=== PATIENT | male | born 1980 | race Caucasian/White ===

== ENCOUNTER → 2016-10-15 | Outpatient (CLI) | payer OTHER ==
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
== END | disposition home or self-care (01) ==
LOC: RADXRMAIN 11:32
PROVIDERS: ATTEND Family Medicine
DX: J44.9 Chronic obstructive pulmonary disease, unspecified (principal)
CPT/HCPCS: 71020

== ENCOUNTER 2016-12-07 10:56 | Emergency (ER) | payer OTHER ==
[2016-12-07 11:02] VITALS: BP 137/77; PULSE 63; RESP 20; TEMP 98
[2016-12-07] MEDS ORDERED: PROPARACAINE 0.5% OPHTH DROPS 15 ML BTL ONE (11:06)
[2016-12-07] MEDS ORDERED: PROPARACAINE 0.5% OPHTH DROPS 15 ML BTL RIGHT EYE STA (11:43)
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
== END 2016-12-07 11:51 | disposition home or self-care (01) ==
LOC: EC 10:56
DX: H10.31 Unspecified acute conjunctivitis, right eye (principal); F17.200 Nicotine dependence, unspecified, uncomplicated; Z88.6 Allergy status to analgesic agent; Z79.899 Other long term (current) drug therapy
CPT/HCPCS: 99283

== ENCOUNTER 2016-12-31 10:15 | Emergency (ER) | payer OTHER ==
[2016-12-31 10:23] VITALS: BP 133/77; PULSE 81; RESP 18; TEMP 98.4
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
== END 2016-12-31 11:05 | disposition home or self-care (01) ==
LOC: EC 10:15
DX: S61.411A Laceration without foreign body of right hand, initial encounter (principal); F17.200 Nicotine dependence, unspecified, uncomplicated; Z88.6 Allergy status to analgesic agent; Z79.899 Other long term (current) drug therapy; W25.XXXA Contact with sharp glass, initial encounter
CPT/HCPCS: 12001; 99283

== ENCOUNTER 2017-02-15 10:12 | Emergency (ER) | payer OTHER ==
[2017-02-15 10:30] VITALS: BP 122/90; PULSE 60; RESP 15; TEMP 98.2
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
== END 2017-02-15 11:29 | disposition home or self-care (01) ==
LOC: EC 10:12
DX: L02.11 Cutaneous abscess of neck (principal); F17.200 Nicotine dependence, unspecified, uncomplicated; Z88.6 Allergy status to analgesic agent; Z79.899 Other long term (current) drug therapy
CPT/HCPCS: 10060; 99282

== ENCOUNTER 2017-02-26 09:35 | Emergency (ER) | payer OTHER ==
[2017-02-26 09:41] VITALS: BP 153/80; PULSE 63; RESP 18; TEMP 97.7
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
== END 2017-02-26 10:45 | disposition home or self-care (01) ==
LOC: EC 09:35
DX: S16.1XXA Strain of muscle, fascia and tendon at neck level, initial encounter (principal); M62.838 Other muscle spasm; F17.200 Nicotine dependence, unspecified, uncomplicated; Z88.6 Allergy status to analgesic agent; Z79.51 Long term (current) use of inhaled steroids; Z79.899 Other long term (current) drug therapy; X58.XXXA Exposure to other specified factors, initial encounter
CPT/HCPCS: 72050; 99283

== ENCOUNTER → 2017-04-09 | Outpatient (CLI) | payer OTHER ==
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
== END | disposition home or self-care (01) ==
LOC: SLEEP 10:51
PROVIDERS: ATTEND Internal Medicine Critical Care Medicine
DX: G47.00 Insomnia, unspecified (principal); M06.9 Rheumatoid arthritis, unspecified; G56.03 Carpal tunnel syndrome, bilateral upper limbs; M54.2 Cervicalgia; M25.519 Pain in unspecified shoulder; G89.29 Other chronic pain; G43.909 Migraine, unspecified, not intractable, without status migrainosus; F17.210 Nicotine dependence, cigarettes, uncomplicated; Z79.899 Other long term (current) drug therapy
CPT/HCPCS: 99211

== ENCOUNTER 2017-10-30 08:03 | Day surgery (SDC) | payer OTHER ==
[~2017-10-30 08:03] MED LIST: PREMYELOGRAM MEDICATION REVIEW 1 EACH MISC PO ONE
[2017-10-30] MEDS ORDERED: DIAZEPAM 5 MG TAB PO STA (08:30)
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
[2017-10-30 12:48] VITALS: BMI 29.0
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
[2017-10-30 16:05] VITALS: BP 137/81; PULSE 58; RESP 16; TEMP 97.9
--- NOTE | 2017-10-30 17:19 | FL ---
PROCEDURE: Fluoroscopy myelogram injection. DATE: 10/30/2017 CLINICAL HISTORY: 37-year-old male with a headache, neck, and back pain. Cervical and lumbar disc deg eneration. COMPLICATIONS: None. SEDATION: Standard medication administered by nursing. The patient and the patient's vital signs were monitore d by qualified independent radiology personnel. TECHNIQUE: The procedure and potential risks were explained to patient and an informed consent was obtained with teach back. Site and side was verified. A time out was performed. The patient was placed prone on the fluoroscopy table and the L3-L4 level was localized and the skin was marked and was prepped and draped in the usual sterile fashion. Lidocaine was used for local anesthesia. Utilizing fluoroscopic guidance a 22-gauge spinal needle was placed through the skin and into the subarachnoid space. After return of clear CSF, 8 mL of Isovue 300 contrast material was injected into the subarachnoid sp andrew. Needle was removed, hemostasis obtained, and dressing placed. No blood loss. Patient's neck was extended and the table was maneuvered so that the contrast would travel into the c ervical region. However, when the table was tilted head down, the patient began complaining of severe pain and discomfort. The patient was brought flat and no further manipulation was performed. The int rathecal contrast had extended only to the thoracic level. Vital signs were assessed by nursing and the patient's condition improved over the course of 5 minute s. Decision was made not to attempt further manipulation. Instructions were given to wait 45 minutes prior to performing the CT myelogram. The patient was was sent back to the recovery room in satisfactory condition. The patient's condition was unchanged following the procedure. Fluoroscopy time: 48 Total images: 5. IMPRESSION: Successful myelogram injection for CT. Instructions were given to wait 45 minutes prior to scanning a s the patient could not tolerate head down position on the table to get adequate intrathecal opacific ation at the level of the cervical spine.
== END 2017-10-30 14:25 | disposition home or self-care (01) ==
LOC: RADPROMAIN 08:03 → 3SUR 10:36 → RADPROMAIN 14:25
PROVIDERS: ATTEND Neurological Surgery
DX: M50.33 Other cervical disc degeneration, cervicothoracic region (principal); M51.36 Other intervertebral disc degeneration, lumbar region
CPT/HCPCS: 62305; 72126; 72132

== ENCOUNTER 2019-07-02 12:36 | Emergency (ER) | payer OTHER ==
[2019-07-02] MEDS ORDERED: ORPHENADRINE 30 MG/ML 2 ML VIAL IM STA (13:47)
[2019-07-02] MEDS ORDERED: KETOROLAC 30 MG/ML 1 ML VIAL IM STA (13:47)
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
[2019-07-02 14:56] VITALS: BP 119/74; PULSE 70; RESP 17; TEMP 98.1
== END 2019-07-02 14:52 | disposition home or self-care (01) ==
LOC: EC 12:36
DX: S39.012A Strain of muscle, fascia and tendon of lower back, initial encounter (principal); I10 Essential (primary) hypertension; M06.9 Rheumatoid arthritis, unspecified; M51.36 Other intervertebral disc degeneration, lumbar region; M19.012 Primary osteoarthritis, left shoulder; M19.011 Primary osteoarthritis, right shoulder; G89.29 Other chronic pain; F17.200 Nicotine dependence, unspecified, uncomplicated; Z79.899 Other long term (current) drug therapy; Z88.6 Allergy status to analgesic agent; Z98.890 Other specified postprocedural states; X58.XXXA Exposure to other specified factors, initial encounter
CPT/HCPCS: 99283; 96372 ×2; J2360; J1885

== ENCOUNTER 2020-06-20 09:08 | Emergency (ER) | payer OTHER ==
[2020-06-20 09:14] VITALS: BP 155/84; PULSE 68; RESP 18; TEMP 98.3
[2020-06-20] MEDS ORDERED: KETOROLAC 15 MG/ML 1 ML VIAL IM STA (09:29)
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
== END 2020-06-20 09:41 | disposition home or self-care (01) ==
LOC: EC 09:08
DX: K08.89 Other specified disorders of teeth and supporting structures (principal); I10 Essential (primary) hypertension; F17.200 Nicotine dependence, unspecified, uncomplicated; M06.9 Rheumatoid arthritis, unspecified; Z79.899 Other long term (current) drug therapy; Z88.8 Allergy status to other drugs, medicaments and biological substances
CPT/HCPCS: 99282; 96372; J1885

== ENCOUNTER 2021-06-09 05:17 | Emergency (ER) | payer OTHER ==
[2021-06-09 05:26] VITALS: TEMP 98.5
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
--- NOTE | 2021-06-09 06:40 | XR ---
EXAMINATION TYPE: XR foot complete RT DATE OF EXAM: 06/09/2021 COMPARISON: NONE HISTORY: Pain TECHNIQUE: 3 views FINDINGS: Metatarsals are intact. The toes appear intact. I see no fracture nor dislocation. IMPRESSION: Negative right foot exam. No fracture seen
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
[2021-06-09] MEDS ORDERED: ACET/COD 300 MG/30 MG STARTER PACK 6 TAB BTL PO STA (07:20)
[2021-06-09 08:03] VITALS: BP 112/76; PULSE 87; RESP 17
== END 2021-06-09 08:10 | disposition home or self-care (01) ==
LOC: EC 05:17
DX: S90.31XA Contusion of right foot, initial encounter (principal); I10 Essential (primary) hypertension; M06.9 Rheumatoid arthritis, unspecified; M19.90 Unspecified osteoarthritis, unspecified site; G43.909 Migraine, unspecified, not intractable, without status migrainosus; F41.9 Anxiety disorder, unspecified; F32.A Depression, unspecified; F12.90 Cannabis use, unspecified, uncomplicated; F17.200 Nicotine dependence, unspecified, uncomplicated; Z72.89 Other problems related to lifestyle; Y04.8XXA Assault by other bodily force, initial encounter
CPT/HCPCS: 70450; 72125; 99284

== ENCOUNTER 2022-07-26 07:48 | Emergency (ER) | payer OTHER ==
[2022-07-26 07:56] VITALS: BP 132/91; PULSE 57; RESP 18; TEMP 97.8
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
== END 2022-07-26 08:25 | disposition home or self-care (01) ==
LOC: EC 07:48
DX: R19.7 Diarrhea, unspecified (principal); E86.0 Dehydration; I10 Essential (primary) hypertension; F41.9 Anxiety disorder, unspecified; F32.A Depression, unspecified; F17.200 Nicotine dependence, unspecified, uncomplicated; F12.90 Cannabis use, unspecified, uncomplicated; Z88.8 Allergy status to other drugs, medicaments and biological substances; Z79.1 Long term (current) use of non-steroidal anti-inflammatories (NSAID); Z79.51 Long term (current) use of inhaled steroids; Z79.899 Other long term (current) drug therapy
CPT/HCPCS: 99283